=== PATIENT | female | born 1970 | race Two or more races ===

== ENCOUNTER → 2024-12-24 | Outpatient (CLI) | payer OTHER, SELFPAY ==
--- NOTE | 2024-12-24 14:15 | XR_ITS ---
Examination: Screening digital mammography, bilateral Computer aided detection 3-D breast Tomosynthesis, bilateral Date and time of exam: December 24, 2024 1500 hours No priors Indication: Screening Technique: Nonmagnified MLO, CC views of the breasts to been obtained, reconstructed from 3-D Tomosynthesis images. R2 computer aided detection program utilized for evaluation of suspicious masses and/or abnormal calcifications. 3-D Tomosynthesis images obtained. Findings: The breasts are heterogeneously dense, which may obscure small masses 10 mm focal asymmetry indistinct margins inner left breast CC view 7.2 cm from the nipple 8mm focal asymmetry upper right breast MLO view, 7 cm from the nipple Impression: BI-RADS Category 0: Incomplete: Need additional imaging evaluation Recommend follow-up spot tomographic views inner upper quadrant left breast to assess 10 mm focal asymmetry inner left breast CC view 7.2 cm Nipple Recommend follow-up spot tomographic views upper outer quadrant right breast to assess 8mm focal asymmetry upper right breast MLO view 7 cm from the nipple Recommend bilateral breast sonography to complete the workup
== END | disposition home or self-care (01) ==
LOC: CDIM 14:53
PROVIDERS: PCP Nurse Practitioner Family; Referring Provider Nurse Practitioner Family; Visit Provider Nurse Practitioner Family
DX: Z12.31 Encounter for screening mammogram for malignant neoplasm of breast (principal); N64.89 Other specified disorders of breast
CPT/HCPCS: 77063; 77067

== ENCOUNTER → 2025-02-24 | Outpatient (CLI) | payer BC, SELFPAY ==
--- NOTE | 2025-02-24 15:00 | XR_ITS ---
Examination: Breast ultrasound complete, bilateral Date and time of exam: February 24, 2025, 1526 hours INDICATIONS: Mammogram December 25, 1999 2510 mm focal asymmetry indistinct margins upper inner quadrant left breast 8 mm focal asymmetry outer right breast Technique: Real-time grayscale ultrasonographic imaging bilateral breasts, including all 4 quadrants as well as nipple retroareolar and axillary regions. Findings: Sonographic images right breast 10:00 cyst 3 x 4 mm No solid nodules Sonographic images left breast 3:00 cyst 5 x 4 mm No solid nodules IMPRESSION: BI-RADS Category 2: Benign findings
--- NOTE | 2025-02-24 16:00 | XR_ITS ---
Examination: Diagnostic digital mammography, bilateral Computer aided detection 3-D breast Tomosynthesis, bilateral Date and time of exam: February 24, 2025, 1604 hours INDICATIONS: Mammogram December 24, 2024 8 mm focal asymmetry upper right breast 10 mm focal asymmetry inner left breast Technique: Nonmagnified MLO, CC views of the breasts to been obtained, reconstructed from 3-D Tomosynthesis images. R2 computer aided detection program utilized for evaluation of suspicious masses and/or abnormal calcifications. 3-D Tomosynthesis images obtained. Findings: The breasts are heterogeneously dense, which may obscure small masses No suspicious masses are noted on the spot compression views Impression: BI-RADS Category 2: Benign findings Return to yearly follow-up mammography.
== END | disposition home or self-care (01) ==
PROVIDERS: PCP Nurse Practitioner Family; Referring Provider Nurse Practitioner Family; Visit Provider Nurse Practitioner Family
DX: R92.321 Mammographic fibroglandular density, right breast (principal)
CPT/HCPCS: 76641; 77062; 77066; G0279